=== PATIENT | male | born 1935 | race Caucasian/White ===

== ENCOUNTER 2016-09-05 19:34 | Emergency (ER) | payer MEDICARE, OTHER ==
[~2016-09-05] VITALS: Ht 182.9 cm; Wt 115.5 kg
[~2016-09-05 19:34] MED LIST: ASPI-973 PO; ATRV10T PO; CITA40TA13 PO; DOXY100T2 PO; FEXO-106 PO; FINA5TAB9 PO; HYDR25TA4 PO; LISI-567 PO; MAGN500T PO; MULT-896 PO; POTA10CA42 PO; TAMS0.4C29 PO
[2016-09-05 19:43] VITALS: BP 133/78; PULSE 86; RESP 18; O2SAT 93
--- NOTE | 2016-09-05 21:23 | ED.REPORT ---
HPI-Abd Pain M 40 and Over Date of Service Sep 05, 2016 ED Provider: Dr. Newell Pt is an 81 y/o male w/ a hx of HTN and constipation presenting to the ED c/o constipation onset 1 week ago. He took a full dose of milk of magnesium this morning at 1000 without relief. He denies abdominal pain, N/V/D, fever. Nursing Notes Stated Complaint: SEVERE CONSTIPATION Chief Complaint: General Complaint Nursing Notes Reviewed: Yes Allergies: Coded Allergies: Penicillins (Verified Allergy, Severe, 03/14/16) Scheduled Aspirin (Aspirin) 81 Mg Tablet 162 MG PO DAILY Atorvastatin (Lipitor) 10 Mg Tab 10 MG PO DAILY Citalopram (Citalopram) 40 Mg Tablet 40 MG PO DAILY Doxycycline Hyclate (Doxycycline Hyclate) 100 Mg Tablet 100 MG PO DAILYWM Take one tab daily with a meal or a snack for one week. Fexofenadine (Fexofenadine) 180 Mg Tablet 180 MG PO DAILY Finasteride (Finasteride) 5 Mg Tablet 5 MG PO Q2DAY Hydrochlorothiazide (Hydrochlorothiazide) 25 Mg Tablet 25 MG PO DAILY Lisinopril (Lisinopril) 20 Mg Tablet 20 MG PO BID Multivitamin W-Minerals/Lutein (Centrum Silver Ultra Men's Tab) 1 Each Tablet 1 EACH PO DAILY Potassium Chloride (Potassium Chloride) 10 Meq Capsule.er 10 MEQ PO DAILY TAKE WITH FOOD Tamsulosin ER (Tamsulosin ER) 0.4 Mg Cap.er.24h 0.4 MG PO DAILY Miscellaneous Medications Magnesium Oxide (Magnesium Oxide) 500 Mg Tablet 1,000 MG PO General Time Seen by MD: 21:21 Chief Complaint Constipation Hx Obtained From: Patient Arrived By: Walk-in Sudden in Onset?: No Onset Occurred: 1 week ago Symptom Duration: Since onset Progression since Onset: Constant Severity: Current: No pain currently Severity: Maximum: No pain Similar Sx Previous: Yes Past Medical History Past Medical History Hx Complete heart block, V-tach Hypertension Hx pneumonia MUSTAPHA on CPAP Hx UTI BPH Depression Anxiety Past Surgical History T&A Nasal flap Smoking History Never Smoker Social History Alcohol Use: Denies alcohol use Drug Use: Denies drug use Ambulatory Status Independent Review of Systems Constitutional: Denies: Chills, Fever Respiratory: Denies: Non-productive cough, Shortness of breath Cardiovascular: Denies: Chest pain GI: Reports: Constipation, Denies: Abdominal pain, Bloody/tarry stool, Diarrhea, Nausea, Vomiting Complete sys rev & neg: except as marked. Physical Exam Initial Vital Signs Vital Signs (First) Date Time Temp Pulse Resp B/P Pulse Ox O2 Delivery O2 Flow Rate FiO2 09/05/16 19:43 36.0 86 18 133/78 93 Room Air Initial VS: Reviewed, Vital signs normal Head / Eyes: Atraumatic, Normocephalic, PERRL ENT: Mucous membranes moist, Conjunctiva normal, No scleral icterus Neck: Supple, Full range of motion Extremities: Vascular intact, Neuro intact, No swelling, No tenderness Skin: Warm, Dry, No cyanosis Neurologic: Alert, Oriented, Nonfocal Psychiatric: Mood/affect normal, Behavior normal, Normal thought content General/Constitutional: Awake, Alert, No acute distress, Cooperative, Not toxic appearing Respiratory / Chest: Atraumatic, Breath sounds NL, Breath sounds = bilat, No respiratory distress, No rales, No rhonchi, No wheezing, No retractions, No stridor, No chest tenderness, No chest wall deformity, No crepitus Cardiovascular: Heart rate NL, Regular rhythm, Heart sounds NL, No gallop, No murmurs, No rubs, Cap refill not delayed, Peripheral circulation NL Abdomen: Atraumatic, Soft, Non-tender, No guarding, No rebound, No palpable mass Back: Full range of motion, Painless range of motion Rectum / Perineum: Atraumatic, No gross blood, No fissures, No hemorrhoids Large firm brown stool in the rectal vault No strictures Re-Eval/Medical Decision Med Decision/Clinical Course 81-year-old male with chronic constipation. He has a fecal impaction and has been unable to go for 4 days. He was given of enema here with good results. He was encouraged to use MiraLAX in the future. Time of Eval: 22:00 Re-Evaluation/Progress Note: No relief after anus lubed during exam. Will give enema and recheck. Time of Eval: 02:01 Re-Evaluation/Progress Note: Successful BM after enema. Feeling much better. Informed pt of plan for treatment. Pt understands and agrees with plan for treatment. F/U instructions and RTER warnings given. All questions addressed. Counseled Regarding: Diagnosis, Need for follow-up, When/why to return to ED Discharge & Departure Primary Impression: Fecal impaction in rectum Disposition: Home Vital Signs - All Vital Signs Date Time Temp Pulse Resp B/P Pulse Ox O2 Delivery O2 Flow Rate FiO2 09/06/16 02:05 36.6 80 18 130/72 96 Room Air 09/05/16 19:43 36.0 86 18 133/78 93 Room Air )( All Prior VS Reviewed: Yes Condition: Stable Patient Instructions: Constipation (ED), High Fiber Diet (ED) Additional Instructions: Use MiraLAX 1 capful in 8 ounces of water once or twice daily to soften the stool and prevent hard fecal impaction like this. High-fiber diet. Referrals: Rita Montes De Oca MD (PCP) Scribe Attestation Portions of this note were transcribed by Boo Joshua. I, Dr. Newell personally performed the history, physical exam and medical decision-making; I reviewed and confirmed the accuracy of the information in the transcribed note. Signed by Naeem Piedra, 09/05/16 - [id number] copies to: Rita Montes De Oca MD, Howard L MD Sep 05, 2016 21:23 BOO JOSHUA Sep 05, 2016 21:29
[2016-09-06] MEDS ORDERED: Sodium Biphos-Phos 133 mL Enema RECTAL ONE (01:15)
[2016-09-06 02:05] VITALS: BP 130/72; PULSE 80; RESP 18; O2SAT 96
== END 2016-09-06 02:06 | disposition home or self-care (01) ==
LOC: SED 19:34
DX: K56.41 Fecal impaction (principal); I10 Essential (primary) hypertension; Z79.82 Long term (current) use of aspirin; Z88.0 Allergy status to penicillin

== ENCOUNTER 2017-04-30 14:59 | Emergency (ER) | payer MEDICARE, OTHER ==
[~2017-04-30] VITALS: Ht 175.3 cm; Wt 110.0 kg
--- NOTE | 2017-04-30 15:12 | ED.REPORT ---
HPI-Trauma Multiple Date of Service Apr 30, 2017 ED Provider: Darell James MD Patient is an 81 year old male with a history of hypertension and a pacermaker who presets to the ED via EMS after falling down 3 flights of stairs. He complains of left shoulder pain. He denies losing consciousness, syncope, abdominal pain, back pain or neck pain. The patient reports that he missed a step and has a problem with stability so he continued to fall down the stairs. Patient is not currently on anticoagulants. Nursing Notes Stated Complaint: FELL DOWN 3 FLIGHTS OF STAIRS Chief Complaint: Multiple Trauma/Fall Nursing Notes Reviewed: Yes Allergies: Coded Allergies: Penicillins (Verified Allergy, Severe, 04/30/17) Scheduled Aspirin (Aspirin) 81 Mg Tablet 162 MG PO DAILY Atorvastatin (Lipitor) 10 Mg Tab 10 MG PO DAILY Citalopram (Citalopram) 40 Mg Tablet 40 MG PO DAILY Doxycycline Hyclate (Doxycycline Hyclate) 100 Mg Tablet 100 MG PO DAILYWM Take one tab daily with a meal or a snack for one week. Fexofenadine (Fexofenadine) 180 Mg Tablet 180 MG PO DAILY Finasteride (Finasteride) 5 Mg Tablet 5 MG PO Q2DAY Hydrochlorothiazide (Hydrochlorothiazide) 25 Mg Tablet 25 MG PO DAILY Lisinopril (Lisinopril) 20 Mg Tablet 20 MG PO BID Multivitamin W-Minerals/Lutein (Centrum Silver Ultra Men's Tab) 1 Each Tablet 1 EACH PO DAILY Potassium Chloride (Potassium Chloride) 10 Meq Capsule.er 10 MEQ PO DAILY TAKE WITH FOOD Tamsulosin ER (Tamsulosin ER) 0.4 Mg Cap.er.24h 0.4 MG PO DAILY Miscellaneous Medications Magnesium Oxide (Magnesium Oxide) 500 Mg Tablet 1,000 MG PO General Time Seen by Provider: 15:14 Chief Complaint Extremity pain/injury Hx Obtained From: Patient Arrived By: Ambulance Onset Occurred: Just prior to arrival Symptom Duration: Since onset Caused by: Fall down stairs Location: : Shoulder left Quality: Painful Severity: Current: Moderate Similar Sx Previous: No Past Medical History Past Medical History Complete heart block, V-tach pneumonia MUSTAPHA on CPAP UTI BPH Depression Anxiety Reports: Hypertension Past Surgical History T&A Nasal flap Reports: Pacemaker insertion Smoking History Never Smoker Social History Alcohol Use: Denies alcohol use Drug Use: Denies drug use Ambulatory Status Independent Review of Systems GI: Denies: Abdominal pain Musculoskeletal: Reports: Extremity pain, Denies: Back pain, Neck pain Neurologic: Denies: Change LOC, Headache, Syncope Complete sys rev & neg: except as marked. Physical Exam Initial Vital Signs Vital Signs (First) Date Time Temp Pulse Resp B/P Pulse Ox O2 Delivery O2 Flow Rate FiO2 04/30/17 15:16 36.4 60 16 128/76 96 Room Air Initial VS: Reviewed General/Constitutional: Awake, Alert answering questions appropriately Head / Eyes: Atraumatic, Normocephalic, PERRL, EOMI superficial 1cm laceration about the midline forehead at the hairline with blood present, otherwise scalp and head are atraumtic no occular trauma Neck: Atraumatic, Supple, No midline vertebral tend no step off no bony tenderness Respiratory / Chest: Atraumatic, Breath sounds NL, Breath sounds = bilat, No respiratory distress Cardiovascular: Heart rate NL, Regular rhythm, Heart sounds NL Abdomen: Atraumatic, Soft, Non-tender, No distention well healed right upper quadrant surgical scar Back: Atraumatic, Inspection NL no midline, thoracic or lumbar tenderness Neurologic: Oriented X3, Speech NL ENT: Atraumatic, Airway patent, Mucous membranes moist no oral trauma Upper Extremity / MS: Atraumatic, Neurologic intact, Vascular intact Upper Ext Brief Normals: Shoulder R exam normal, Arm R exam normal, Elbow R exam normal, Forearm R exam normal, Wrist R exam normal, Hand R exam normal patient is holding his left arm tender about the left anterior shoulder obvious deformity of the shoulder good radial pulses and sensation intact to hand sensation intact over deltoid region Lower Extremity / Pelvis / MS: Atraumatic, Full range of motion (active and passive), Neurologic intact, Vascular intact, Pelvis stable superficial abrasion over the right knee good dp pulses moving both lower extremities Male Genitourinary: Atraumatic, Inspection NL, Penis NL, No meatal blood, Testes NL Interpretation & Diagnostics Lab Results Interpretation Result Diagram: 04/30/17 1535 04/30/17 1535 Test 04/30/17 15:35 04/30/17 15:55 White Blood Count 8.6th/mm3 (3.8-10.1) Red Blood Count 4.89mil/mm3 (4.40-5.80) Hemoglobin 16.8g/dL (13.8-17.2) Hematocrit 46.8% (41.0-50.0) Mean Corpuscular Volume 95.7fL (81-100) Mean Corpuscular Hemoglobin 34.4pg (27.0-35.0) Mean Corpuscular Hemoglobin Concent 35.9% (32.0-37.0) Red Cell Distribution Width 13.3% (12.3-15.4) Platelet Count 196bil/L (150-400) Neutrophils (%) (Auto) 75.3% (40-74) Lymphocytes (%) (Auto) 14.7% (14-46) Monocytes (%) (Auto) 8.4% (4-12) Eosinophils (%) (Auto) 1.2% (0-5) Basophils (%) (Auto) 0.2% (0-3) Prothrombin Time 10.0sec (8.1-12.5) Prothromb Time International Ratio 0.94ratio Activated Partial Thromboplast Time 24.7sec (22.8-33.0) Sodium Level 141mEq/L (134-144) Potassium Level 4.0mEq/L (3.5-5.2) Chloride Level 103mEq/L (97-108) Carbon Dioxide Level 24mmol/L (18-29) Blood Urea Nitrogen 17mg/dL (8-27) Creatinine 0.96mg/dL (0.76-1.27) Estimat Glomerular Filtration Rate 80mL/min (>59) Glucose Level 116mg/dL (60-99) Calcium Level 9.3mg/dL (8.5-10.1) Total Bilirubin 0.6mg/dL (0.0-1.2) Aspartate Amino Transf (AST/SGOT) 35U/L (0-50) Alanine Aminotransferase (ALT/SGPT) 33U/L (0-44) Alkaline Phosphatase 75U/L (25-160) Total Protein 6.6g/dL (6.4-8.4) Albumin 3.9g/dL (3.4-5.0) Alcohols < 10mg/dL (0-10) Hold Noe Top Tube Received (Received) X-Ray Chest Interpretation Chest Xray Interpretation: IMPRESSION: 1. Humeral fracture dislocation partially characterized. 2. No acute cardiopulmonary findings. 3. Questionable left basilar pulmonary nodule. Short interval repeat study recommended. Dictated by: Mimi Galloway M.D. on 04/30/2017 at 16:21 Approved by: Mimi Galloway M.D. on 04/30/2017 at 16:22 View: Portable, 1 view Interpretation / Wet Read by: Interpret - Radiologist X-Ray Interpretation Xray Interpretation: IMPRESSION: No acute radiographic findings. If there is continued pain, followup exam or additional imaging such as MRI or CT could be performed for further assessment. Dictated by: Mimi Galloway M.D. on 04/30/2017 at 16:20 Approved by: Mimi Galloway M.D. on 04/30/2017 at 16:21 X-Ray Ordered: Pelvis Interpretation / Wet Read by: Interpret - Radiologist Xray Interpretation: IMPRESSION: Fracture dislocation of the proximal humerus. Dictated by: iMmi Galloway M.D. on 04/30/2017 at 16:19 Approved by: Mimi Galloway M.D. on 04/30/2017 at 16:20 X-Ray Ordered: Shoulder left Interpretation / Wet Read by: Interpret - Radiologist Xray Interpretation: IMPRESSION: Successful reduction of left shoulder joint dislocation as is glenohumeral joint). A fracture fragment discussed previously earlier same day during the time of dislocation cannot be seen by the current study but is presumed to be present and obscured by the now reduced humeral head dislocation. Dictated by: Augustin Shine M.D. on 04/30/2017 at 19:10 Approved by: Augustin Shine M.D. on 04/30/2017 at 19:11 Study Performed: repeat post reduction shoulder X-Ray Ordered: Shoulder left Interpretation / Wet Read by: Interpret - Radiologist CT Head Interpretation IMPRESSION: No acute intracranial abnormality Right mandibular periodontal disease. Please correlate with dental exam. Dictated by: Rajiv Solorzano M.D. on 04/30/2017 at 15:13 Approved by: Rajiv Solorzano M.D. on 04/30/2017 at 15:16 Interpretation / Wet Read by: Interpret - Radiologist CT C-Spine Interpretation IMPRESSION: No fracture. 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 Straightening of the normal cervical lordosis. Dictated by: Rajiv Solorzano M.D. on 04/30/2017 at 15:17 Approved by: Rajiv Solorzano M.D. on 04/30/2017 at 15:23 Interpretation / Wet Read by: Interpret - Radiologist Procedures Proced Mod Sedation/Analgesia Time: 18:24 Procedure Performed by: ED physician Sedation Time: 16 - 30 min (25 minutes) Consent / Setup: Consent from patient, Time-out performed, Hand hygiene observed, Position supine Indication: Shoulder reduction Preparation: court recording monitor applied, Pulse oximeter applied, Constant attendance, IV access established, Eval last meal time, Supplemental oxygen, Procedure explained, Suction available, End tidal CO2 mon applied VS Prior to Procedure: All vital signs normal Mallampati: Class & Anatomy: 2 top tonsil/uvula/palate Airway Exam: Normal facial anatomy, Normal neck anatomy, Normal anatomy CVS/Resp Exam: Normal breath sounds, Normal heart sounds Neuro Exam: Alert, No acute distress, Responsive Sedation: Sedation: Propofol ASA Classification: 2 mild systemic disease Response During Procedure: Handled secretions adeq, Maintained airway well, Oxygenation stable, Sedation appropriate, Vital signs stable Complications During/After: None Reversal: None required Mental Status After Procedure: Alert, Oriented X3, Response to verbal stim, Response to painful stim Post-Procedure: Alert prior to discharge, Pt rtn pre-proc baseline, Vital signs normal Attestation: I performed procedure, I performed sedation Reduction Dislocated Shoulder Time: 18:27 Procedure Performed by: ED physician Consent / Setup: Consent from patient, Time-out performed, Oxygen administered , Pulse oximeter applied, court recording monitor applied, Hand hygiene observed Procedural Sedation/Analgesia: Sedation: Propofol Which Shoulder and Technique: Left shoulder Neurovascular: Intact pre-procedure, Intact post-procedure Post-Procedure / Complications: Reduced per examination, Procedure successful, X-ray disloc reduced, Shoulder immobilized, Condition improved, Tolerated procedure well, Patient stable Re-Eval/Medical Decision Med Decision/Clinical Course Patient is an 81 year old male with a history of hypertension and a pacermaker who presets to the ED via EMS after falling down 3 flights of stairs. He complains of left shoulder pain. He denies losing consciousness, syncope, abdominal pain, back pain or neck pain. The patient reports that he missed a step and has a problem with stability so he continued to fall down the stairs. Patient is not currently on anticoagulants. Here in the emergency department the patient appears uncomfortable though he is otherwise medically stable and afebrile with examination as above. The patient was treated with the below medications: Zofran, IVF and Hydromorphone for pain Labs: CBC unremarkable, CMP unremarkable, INR 0.94, alcohol negative Laboratory studies were obtained as below: Head CT demonstrated no acute intracranial process or hemorrhage Cervical spine CT demonstrated no acute fractures Chest x-ray demonstrated pulmonary nodule but no evidence of rib fractures, pneumothorax or acute traumatic injuries Plain films of the pelvis demonstrated no acute fractures X-rays of the left shoulder showed a left proximal humerus dislocation/fracture Patient remained hemodynamically stable in no apparent distress. Full head to toe survey revealed no other signs of injury. Consent was obtained and procedural sedation was performed with propofol. The patient's shoulder dislocation was reduced. He remained neurovascularly intact thereafter. The procedure was tolerated well. Patient was discussed with orthopedic surgery who requested CT scan to further determine the location of the avulsed bony fragment. He was placed in a sling and has been referred to orthopedic surgery clinic. He will call first thing tomorrow for an appointment. Postreduction CT scan of the shoulder as below: The small fracture fragment seen by plain film imaging during dislocation of the humeral head from the glenoid fossa earlier today represents an avulsion fracture, acute, across the base of the tip of the coracoid process of the right scapula. At this time the patient is hemodynamically stable and afebrile. He reports feeling much better. He is ambulating with ease. Prior to discharge follow-up and return precautions were reviewed in detail with the patient who verbalized understanding and agreement with the plan. The patient was discharged in stable condition. Re-Evaluation/Progress #1: Time of Eval: 16:37 Re-Evaluation/Progress Note: Discussed imaging results and plan for reduction/sedation. Patient reports no problems with sedation, understands and agrees to plan. All questions were addressed. Re-Evaluation/Progress #2: Time of Eval: 19:49 Re-Evaluation/Progress Note: Discussed all results and plan for discharge. Patient understands and agrees to plan. All questions were addressed. Consultation : Referral / Consult Name: Stevan Young DO Consulted With: Orthopedic Call Returned at: 16:31 Note: Consult with Dr. Young, who recommends reducing the shoulder and getting a CT. Counseled Regarding: Diagnosis, Lab results, Need for follow-up, When/why to return to ED Discharge & Departure Impression: Primary Impression: Closed fracture of left proximal humerus Encounter type: initial encounter Fracture morphology: unspecified fracture morphology Qualified Code: S42.202A - Unspecified fracture of upper end of left humerus, initial encounter for closed fracture Additional Impressions: Anterior dislocation of left humerus Encounter type: initial encounter Qualified Code: S43.015A - Anterior dislocation of left humerus, initial encounter Fall down stairs Encounter type: initial encounter Qualified Code: W10.8XXA - Fall (on) (from ) other stairs and steps, initial encounter Abrasions of multiple sites Posttraumatic pain Disposition: Home Discharge Condition All VS Reviewed: Yes Condition: Stable Patient Instructions: Proximal Humerus Fracture (ED) Additional Instructions: Thank you for seeking care at the emergency room. Our primary goal today in the Emergency Department was to evaluate you for any life-threatening conditions. Your evaluation was reassuring. Your X-ray showed that you had a shoulder dislocation. We reduced it in the ED. Call the referred orthopedic tomorrow to schedule a follow up appointment. You will be discharged with a prescription for [place]. Take as prescribed. Your chest X-ray also showed a pulmonary nodule. You should follow-up with your primary doctor in the next week in regards to this finding. You should return to the Emergency Department immediately if you develop fevers , shortness of breath, increasing pain, lightheadedness, weakness or any other concerning signs or symptoms. Thank you for letting us partake in your care today. You have been prescribed a narcotic for pain relief. These drugs are usually combined with acetaminophen (Tylenol#3, Percocet, Darvocet, Anexsia, Vicodin) or aspirin (Empirin#3, Percodan, Synalogs-DC) for increased effect. Narcotics act on the central nervous system to reduce pain; they also impair mental alertness and physical abilities. We advise you not to drink alcohol, drive a car, or operate dangerous equipment when you are taking these drugs. You can lessen stomach irritation from your medicine by taking it with meals or a full glass of water. Common side effects of narcotics are: Nausea and vomiting , heartburn, constipation, dizziness, sleepiness, and mood changes. If you have bothersome side effects or symptoms of an allergic reaction (itching, hives, rash), stop taking your medicine and call your doctor or the emergency room right away. Please keep your narcotic medicine well out of the reach of children. Referrals: Rita Montes De Oca MD (PCP) Stevan Young DO Scribe Attestation Portions of this note were transcribed by Sharmin Gan. I, Dr. James personally performed the history, physical exam and medical decision-making; I reviewed and confirmed the accuracy of the information in the transcribed note. Signed by: Naeem Cisneros, 04/30/17 copies to: Stevan Young DO; Rita Montes De Oca MD, Beck O MD Apr 30, 2017 15:12 Radha Gan Apr 30, 2017 15:20
[2017-04-30 15:16] VITALS: BP 128/76; PULSE 60; RESP 16; O2SAT 96
[2017-04-30] MEDS ORDERED: 0.9% Sodium Chloride 1,000 ML IV ONE (15:19)
[2017-04-30] MEDS ORDERED: Ondansetron 2 mg/mL 2 mL Inj IVPUSH PRN (15:20)
[2017-04-30] MEDS: HYDROmorphone 0.5 mg/0.5 mL iSecure Syringe IVPUSH PRN ×2 (15:47→17:07)
[2017-04-30 15:48] LABS: EOSINOPHILS % (AUTO) 1.2 % (0-5)
[2017-04-30 15:51] LABS: BASOPHILS % (AUTO) 0.2 % (0-3); MONOCYTES % (AUTO) 8.4 % (4-12); Mean Corpuscular Hemoglobin 34.4 pg (27.0-35.0); Mean Corpuscular Volume 95.7 fL (81-100); NEUTROPHILS % (AUTO) 75.3 % (40-74); Platelet Count 196 bil/L (150-400)
[2017-04-30 16:04] LABS: INR 0.94 ratio
--- NOTE | 2017-04-30 16:18 | DRSVH ---
PROCEDURE: CT BRAIN WITHOUT CONTRAST ([id number]) INDICATIONS: trauma TECHNIQUE: Noncontrast 4.5 mm thick angled axial sections acquired from the foramen magnum to the vertex, with c oronal reformats. COMPARISON: None. FINDINGS: Image quality: Excellent. CSF spaces: Basal cisterns are patent. No extra-axial fluid collections. The ventricles are symmet guy in size and shape. Brain: No intracranial bleeds or masses. There is cerebral volume loss for age, with resultant vent ricular and sulcal prominence. There are periventricular and deep white matter chronic small vessel ischemic changes. There is intracranial internal carotid artery atherosclerosis. Skull and face: Calvarium and visualized facial bones appear intact, without suspicious lesions. Ly tic areas surrounding the right mandibular premolar or canine, suggesting periodontal disease however this is only partially visualized Sinuses: Visualized sinuses and mastoids are clear. IMPRESSION: No acute intracranial abnormality Right mandibular periodontal disease. Please correlate with dental exam. Dictated by: Rajiv Solorzano M.D. on 04/30/2017 at 15:13 Approved by: Rajiv Solorzano M.D. on 04/30/2017 at 15:16
--- NOTE | 2017-04-30 16:22 | DRSVH ---
PROCEDURE: X-RAY LEFT SHOULDER, MINIMUM TWO VIEWS ([id number]) INDICATIONS: trauma TECHNIQUE: 2 views of the shoulder were acquired. COMPARISON: None. FINDINGS: Bones: There is an anterior dislocation of the humeral head with respect to the glenoid. A small bone fragment is present adjacent to the glenoid, likely a small fracture of the proximal humerus. Soft tissues: No suspicious soft tissue calcifications. IMPRESSION: Fracture dislocation of the proximal humerus. Dictated by: Mimi Galloway M.D. on 04/30/2017 at 16:19 Approved by: Mimi Galloway M.D. on 04/30/2017 at 16:20
--- NOTE | 2017-04-30 16:23 | DRSVH ---
PROCEDURE: X-RAY PELVIS, ONE OR TWO VIEWS ([id number]) INDICATIONS: trauma TECHNIQUE: Single view(s) of the pelvis acquired. COMPARISON: None. FINDINGS: Bones: No fractures or dislocations. No suspicious bony lesions. Soft tissues: Visualized bowel gas pattern is normal. No suspicious soft tissue calcifications. IMPRESSION: No acute radiographic findings. If there is continued pain, followup exam or additional imaging such as MRI or CT could be performed for further assessment. Dictated by: Mimi Galloway M.D. on 04/30/2017 at 16:20 Approved by: Mimi Galloway M.D. on 04/30/2017 at 16:21
--- NOTE | 2017-04-30 16:24 | DRSVH ---
PROCEDURE: CT CERVICAL SPINE WITHOUT CONTRAST ([id number]) INDICATIONS: trauma TECHNIQUE: Noncontrast 3 mm thick sections acquired from the skull base to the T4 level. Sagittal and coronal r eformats were then constructed. For radiation dose reduction, the following was used: automated exp osure control, adjustment of mA and/or kV according to patient size. COMPARISON: None. FINDINGS: Image quality: Excellent. Bones: No fractures or dislocations. Visualized superior ribs are intact. There is diffuse severe disc space narrowing from C4-C7. End plate sclerosis and spurring is also present. There is straighte chandni of the normal cervical lordosis. Multilevel facet arthropathy is present. Soft tissues: Prevertebral soft tissues are normal in thickness. No paravertebral hematomas. No ap ical pneumothoraces. IMPRESSION: No fracture. 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 Straightening of the normal cervical lordosis. Dictated by: Rajiv Solorzano M.D. on 04/30/2017 at 15:17 Approved by: Rajiv Solorzano M.D. on 04/30/2017 at 15:23
--- NOTE | 2017-04-30 16:24 | DRSVH ---
PROCEDURE: X-RAY CHEST ONE VIEW, PORTABLE ([id number]) INDICATIONS: trauma TECHNIQUE: One view of the chest was acquired. COMPARISON: [facility], CR, XR CHEST 2VW, 03/15/2016, 8:12. FINDINGS: Surgical changes and devices: Dual-lead cardiac pacer is unchanged. Lungs and pleura: No pleural effusions or pneumothorax. There is a questionable nodule in the retroc ardiac left lung base. No acute air space opacities. Mediastinum: Mediastinal contours appear normal. Heart size is mildly enlarged, as before. Bones and chest wall: No suspicious bony lesions. Humerus fracture/dislocation is partially characte rized. Overlying soft tissues appear unremarkable. IMPRESSION: 1. Humeral fracture dislocation partially characterized. 2. No acute cardiopulmonary findings. 3. Questionable left basilar pulmonary nodule. Short interval repeat study recommended. Dictated by: Mimi Galloway M.D. on 04/30/2017 at 16:21 Approved by: Mimi Galloway M.D. on 04/30/2017 at 16:22
[2017-04-30] MEDS ORDERED: Propofol 10 mg/mL 20 mL Inj IVPUSH ONE ×2 (16:35→20:35)
--- NOTE | 2017-04-30 19:13 | DRSVH ---
PROCEDURE: X-RAY LEFT SHOULDER, MINIMUM TWO VIEWS ([id number]) INDICATIONS: post reduction TECHNIQUE: 2 views of the shoulder were acquired. COMPARISON: Shoulder plain films during dislocation earlier same day reviewed. FINDINGS: Bones: No fractures or dislocations. No suspicious bony lesions. Visualized ribs appear intact. Soft tissues: No suspicious soft tissue calcifications. IMPRESSION: Successful reduction of left shoulder joint dislocation as is glenohumeral joint). A fr acture fragment discussed previously earlier same day during the time of dislocation cannot be seen b y the current study but is presumed to be present and obscured by the now reduced humeral head disloc ation. Dictated by: Augustin Shine M.D. on 04/30/2017 at 19:10 Approved by: Augustin Shine M.D. on 04/30/2017 at 19:11
[2017-04-30] MEDS ORDERED: _HYDROcodone/APAP 5-325 mg Tablet PO PRN (19:50)
--- NOTE | 2017-04-30 19:57 | DRSVH ---
PROCEDURE: CT SHOULDER LEFT W/O CONTRAST ([id number]) INDICATIONS: assess fracture TECHNIQUE: Noncontrast 1-1.5 mm thick sections acquired from the acromioclavicular joint to the inferior scapula , with coronal and sagittal reformatting. COMPARISON: [facility], CR, XR SHOULDER MIN 2VW LT, 04/30/2017, 15:46. [facility], CR, XR SHOULDER MIN 2VW LT, 04/30/2017, 18:46. FINDINGS: Image quality: Excellent. Bones: The glenohumeral articulation is successfully reduced with reference to the prior plain film imaging earlier today. The fracture fragment identified on plain film imaging actually represents an avulsion fracture across the base of the tip of the coracoid process. There is no sign of Hill-Sach s deformity or Bankart lesion, involving the posterior humeral head or inferior glenoid margin respec tively. Soft tissues: No hematoma found. IMPRESSION: The small fracture fragment seen by plain film imaging during dislocation of the humeral head from the glenoid fossa earlier today represents an avulsion fracture, acute, across the base of the tip of the coracoid process of the right scapula. Dictated by: Augustin Shine M.D. on 04/30/2017 at 19:52 Approved by: Augustin Shine M.D. on 04/30/2017 at 19:56
[2017-04-30 20:40] VITALS: BP 127/75; PULSE 73; O2SAT 93
== END 2017-04-30 20:12 | disposition home or self-care (01) ==
LOC: EDBD 14:59 → SED 14:59
DX: S42.292A Other displaced fracture of upper end of left humerus, initial encounter for closed fracture (principal); S43.015A Anterior dislocation of left humerus, initial encounter; S01.81XA Laceration without foreign body of other part of head, initial encounter; S80.211A Abrasion, right knee, initial encounter; G89.11 Acute pain due to trauma; W10.8XXA Fall (on) (from) other stairs and steps, initial encounter; Y93.01 Activity, walking, marching and hiking; Y99.8 Other external cause status; Y92.89 Other specified places as the place of occurrence of the external cause; I10 Essential (primary) hypertension; Z87.440 Personal history of urinary (tract) infections; Z79.82 Long term (current) use of aspirin; Z88.0 Allergy status to penicillin
CPT/HCPCS: 23650; 36415; 70450; 71010; 72125; 72170; 73030; 73200; 80053; 85025; 85610; 85730; 86850; 93005; 94799; 96361; 96374; 96376; 99152; 99285; G0480; J1170; J2405; J2704; J7030